=== PATIENT | male | born 1985 | race African-American/Black ===

== ENCOUNTER 2020-07-24 00:28 | Emergency (ER) | payer BC, SELFPAY ==
[2020-07-24] MEDS ORDERED: cloNIDine 0.1 MG TAB ONE (00:59)
[2020-07-24 01:35] LABS: Anion Gap 14 mmol/L (10-20); BUN (Urea Nitrogen) 11 mg/dL (8.9-20.6); Calc. Creatinine Clearance 0 mL/min (70-130); Calcium 9.3 mg/dL (7.8-10.44); Carbon Dioxide 26 mmol/L (22-29); Chloride 100 mmol/L (98-107); Glucose 85 mg/dL (70-105); Potassium 3.7 mmol/L (3.5-5.1); Sodium 136 mmol/L (136-145)
[2020-07-24] MEDS ORDERED: Lisinopril 10 MG TAB ONE (02:13)
== END 2020-07-24 02:20 | disposition home or self-care (01) ==
LOC: NAV ERS 00:28
DX: I10 Essential (primary) hypertension (principal); M62.838 Other muscle spasm; F17.210 Nicotine dependence, cigarettes, uncomplicated; Z79.899 Other long term (current) drug therapy
CPT/HCPCS: 80048; 99283